=== PATIENT | male | born 1955 | race Caucasian/White ===

== ENCOUNTER → 2021-02-14 10:08 | Outpatient (POV) | payer MEDICARE, SELFPAY ==
[2021-02-14 10:27] VITALS: BP 136/84; PULSE 88; RESP 18; O2SAT 98; BMI 33.3
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
== END ==
PROVIDERS: PCP Family Medicine; Visit Provider Family Medicine
DX: M79.643 Pain in unspecified hand (principal); M79.673 Pain in unspecified foot
CPT/HCPCS: 99202; G0463